=== PATIENT | female | born 1985 | race Caucasian/White ===

== ENCOUNTER → 2025-01-10 | Outpatient (CLI) | payer BC ==
--- NOTE | 2025-01-10 12:05 | MM ---
Reason for Exam: Clinical finding. Baseline mammogram. Indicated Problems: Pain of the right side (Focal) for 2 Week(s) : feels larger as well. Patient History: Menarche at age 11. First Full-Term at age 32. Late child-bearing (after 32). Hysterectomy at age 38. Patient has history of breast feeding. Maternal aunt had breast cancer under age 50. Risk Values: Argelia 5 year model risk: 0.6%. NCI Lifetime model risk: 15.0%. Prior Study Comparison: Patient's first Mammogram. Tissue Density: The breasts are heterogeneously dense, which may obscure small masses. Findings: Analyzed By CAD. There is a 12 mm oval circumscribed mass middle to posterior depth upper outer aspect of the right breast approximately 9 cm distance from nipple. Overall Assessment: Incomplete: need additional imaging evaluation, BI-RAD 0 Management: Diagnostic Breast Ultrasound of the right breast. Targeted ultrasound right breast. Results were given to the patient verbally at the time of exam. Patient should continue monthly self-breast exams. A clinical breast exam by your physician is recommended on an annual basis. This exam should not preclude additional follow-up of suspicious palpable abnormalities. Note on Argelia scores and lifetime risk: 1. A Argelia score greater than 3% is considered moderate risk. If this is the case, consider specialist referral to assess eligibility for a risk reducing agent. 2. If overall lifetime risk for the development of breast cancer is 20% or higher, the patient may qualify for future screening with alternating mammogram and breast MRI. [facility], , 01/10/2025 12:02 PM. Electronically signed and approved by: Jose R Putnam M.D.
--- NOTE | 2025-01-10 12:32 | USB ---
Reason for Exam: Additional evaluation requested from prior study. Patient History: Menarche at age 11. First Full-Term at age 32. Late child-bearing (after 32). Hysterectomy at age 38. Patient has history of breast feeding. Maternal aunt had breast cancer under age 50. Risk Values: Argelia 5 year model risk: 0.6%. NCI Lifetime model risk: 15.0%. Technique: Method: Targeted. Findings: The upper outer quadrant of the right breast, the axilla of the right breast and the retroareolar of the right breast were scanned. Targeted ultrasound showed no worrisome solid or cystic mass or abnormal fluid collection. Overall Assessment: Probably benign, BI-RAD 3 Management: Diagnostic Mammogram of the right breast in 6 months. Precautionary short-term diagnostic follow-up right breast mammogram. Manage patient's symptoms clinically. A clinical breast exam by your physician is recommended on an annual basis and results should be correlated with mammographic findings. This exam should not preclude additional follow-up of suspicious palpable abnormalities. Results were given to the patient verbally at the time of exam. [facility], , 01/10/2025 12:20 PM. Electronically signed and approved by: Jose R Putnam M.D.
== END | disposition home or self-care (01) ==
LOC: RADMAMWWP 11:09
PROVIDERS: ATTEND Family Medicine
DX: R92.333 Mammographic heterogeneous density, bilateral breasts (principal); N64.4 Mastodynia; Z80.3 Family history of malignant neoplasm of breast
CPT/HCPCS: 77062; 77066